=== PATIENT | female | born 1990 | race Two or more races ===

== ENCOUNTER 2016-11-06 10:29 | Emergency (ER) | payer SELFPAY ==
[~2016-11-06] VITALS: Ht 160 cm; Wt 63.5 kg
--- NOTE | 2016-11-06 11:15 | NUR ---
PT c/o right eye pain, swelling and discharge since yesterday. No other complaints, no distress noted.
[2016-11-06] MEDS ORDERED: CIPROFLOXACIN 0.3% OPHT DROP 2.5 ML BOTTLE ONE (13:34)
[2016-11-06] MEDS: CIPROFLOXACIN 0.3% OPHT OINT 3.5 GM TUBE RIGHTEYE ONE (13:56)
[2016-11-06] MEDS: MISCELLANEOUS MED RIGHTEYE ONE (13:56)
--- NOTE | 2016-11-06 13:59 | NUR ---
Gave pt RX and d/c instructions, verbalized understanding.
== END 2016-11-06 14:01 | disposition home or self-care (01) ==
LOC: ER 10:29
DX: H01.003 Unspecified blepharitis right eye, unspecified eyelid (principal)
CPT/HCPCS: A4663